=== PATIENT | male | born 1950 | race Caucasian/White ===

== ENCOUNTER 2016-05-31 09:35 | Outpatient (CLI) | payer MEDICARE | END 2016-05-31 09:36 | disposition home or self-care (01) | DX: Z12.11 Encounter for screening for malignant neoplasm of colon (principal) ==

== ENCOUNTER 2016-06-04 11:06 | Outpatient (CLI) | payer MEDICARE | END 2016-06-04 11:07 | disposition home or self-care (01) | DX: I10 Essential (primary) hypertension (principal); Z13.220 Encounter for screening for lipoid disorders ==

== ENCOUNTER 2016-08-02 09:12 | Day surgery (SDC) | payer MEDICARE ==
[~2016-08-02 09:12] MED LIST: PHENYLEPHRINE 2.5% OPHTH 2 ML DROPS ONE
[2016-08-02] MEDS ORDERED: CYCLOPENTOLATE 1% OPHTH DROPS 2 ML OPTH ONE (09:40)
[2016-08-02] MEDS ORDERED: PROPARACAINE 0.5% OPHTH DROPS 15 ML OPTH ONE (09:40)
[2016-08-02] MEDS ORDERED: KETOROLAC 0.45% OPHTH DROPS OPTH ONE (09:40)
[2016-08-02] MEDS ORDERED: PHENYLEPHRINE 2.5% OPHTH 2 ML DROPS OPTH ONE (09:40)
[2016-08-02] MEDS ORDERED: LACTATED RINGERS 500 ML IV ONE (09:44)
[2016-08-02] MEDS ORDERED: MIDAZOLAM 2 MG/2 ML VIAL IVP ONE (09:55)
[2016-08-02] MEDS ORDERED: BRIMONIDINE 0.2% OPHTH DROPS 5 ML OPTH ONE (10:04)
[2016-08-02] MEDS ORDERED: TRIAMCIN/MOXIFLOX/VANCO 1 ML VIAL IO ONE ×2 (10:04)
[2016-08-02] MEDS ORDERED: BSS/LIDOCAINE/EPINEPHRINE 1 ML SYRINGE IO ONE ×2 (10:04)
[2016-08-02] MEDS ORDERED: CHONDR SULF/HYALURONATE SYRINGE IO ONE ×2 (10:04)
[2016-08-02] MEDS ORDERED: EPINEPHrine 1 MG/ML AMP IVP ONE (10:04)
== END 2016-08-02 09:13 | disposition home or self-care (01) ==
PROC: 08RJ3JZ Replacement of Right Lens with Synthetic Substitute, Percutaneous Approach (ICD-10-PCS; principal; 2016-08-02 10:30)
DX: H25.811 Combined forms of age-related cataract, right eye (principal); I10 Essential (primary) hypertension; Z87.891 Personal history of nicotine dependence; M19.90 Unspecified osteoarthritis, unspecified site
CPT/HCPCS: 66984; A9270; V2632; V2788

== ENCOUNTER 2017-04-29 14:05 | Outpatient (CLI) | payer MEDICARE ==
[2017-04-29 19:05] LABS: ALBUMIN/GLOBULIN RATIO 1.1 (1.0-2.2); BILIRUBIN,TOTAL 0.7 mg/dL (0.2-1.0); BUN - BLOOD UREA NITROGEN 18 mg/dL (6-20); CALCIUM 9.1 mg/dL (8.5-10.3); CARBON DIOXIDE - CO2 28 mmol/L (21-32); CHLORIDE 102 mmol/L (101-111); CHOL/HDL RATIO 4.1 (<5.0); CHOLESTEROL 185 mg/dL; CREATININE 0.9 mg/dL (0.6-1.2); GFR - MDRD 84 (>89); GLUCOSE 91 mg/dL (70-100); HDL CHOLESTEROL 45 mg/dL; LDL/HDL RATIO 2.7 (<3.6); POTASSIUM 4.2 mmol/L (3.5-5.0); SODIUM 136 mmol/L (135-145); TOTAL PROTEIN 8.2 g/dL (6.7-8.2); TRIGLYCERIDES 87 mg/dL; VLDL CHOLESTEROL 17 mg/dL
== END 2017-04-29 14:06 | disposition home or self-care (01) ==
LOC: LAB.F 14:05
PROVIDERS: ATTEND Nurse Practitioner Family
DX: B35.1 Tinea unguium (principal)
CPT/HCPCS: 36415; 80053; 80061; G0103; 84153

== ENCOUNTER 2017-05-27 06:10 | Day surgery (SDC) | payer MEDICARE ==
[~2017-05-27 06:10] MED LIST changes: +MIDAZOLAM 2 MG/2 ML VIAL IVP ONE; -PHENYLEPHRINE 2.5% OPHTH 2 ML DROPS ONE; +fentaNYL 100 MCG/2 ML VIAL IVP ONE
[2017-05-27] MEDS ORDERED: LACTATED RINGERS 1,000 ML IV ONE (06:54)
[2017-05-27 08:38] VITALS: BP 118/64
== END 2017-05-27 06:11 | disposition home or self-care (01) ==
LOC: SDS 06:10
PROVIDERS: ATTEND Surgery
PROC: 0DJD8ZZ Inspection of Lower Intestinal Tract, Via Natural or Artificial Opening Endoscopic (ICD-10-PCS; principal; 2017-05-27 07:30)
DX: Z12.11 Encounter for screening for malignant neoplasm of colon (principal); K57.30 Diverticulosis of large intestine without perforation or abscess without bleeding; K64.8 Other hemorrhoids; I10 Essential (primary) hypertension; Z87.891 Personal history of nicotine dependence
CPT/HCPCS: G0121; J7120

== ENCOUNTER 2017-07-12 10:41 | Outpatient (CLI) | payer MEDICARE ==
[2017-07-12 18:20] LABS: ALBUMIN/GLOBULIN RATIO 1.1 (1.0-2.2); BILIRUBIN,TOTAL 0.6 mg/dL (0.2-1.0); CALCIUM 8.9 mg/dL (8.5-10.3); CREATININE 0.9 mg/dL (0.6-1.2); TOTAL PROTEIN 7.7 g/dL (6.7-8.2)
== END 2017-07-12 10:42 | disposition home or self-care (01) ==
LOC: LAB.F 10:41
PROVIDERS: ATTEND Nurse Practitioner Family
DX: B35.1 Tinea unguium (principal)
CPT/HCPCS: 36415; 80053

== ENCOUNTER 2019-07-03 07:01 | Outpatient (CLI) | payer MEDICARE ==
[2019-07-03 09:53] LABS: BASOPHILS # (AUTO) 0.1 10^3/uL (0.0-0.1); BASOPHILS % (AUTO) 1.5 %; EOSINOPHILS # (AUTO) 0.5 10^3/uL (0.0-0.7); EOSINOPHILS % (AUTO) 7.6 %; HGB - HEMOGLOBIN 13.4 g/dL (14.0-18.0); LYMPHOCYTES # (AUTO) 2.1 10^3/uL (1.5-3.5); LYMPHOCYTES % (AUTO) 34.6 %; MEAN CORPUSCULAR HEMOGLOBIN 30.8 pg (27.0-31.0); MEAN CORPUSCULAR HGB CONC 32.3 g/dL (32.0-36.0); MEAN CORPUSCULAR VOLUME 95.4 fL (80.0-94.0); MEAN PLATELET VOLUME 11.6 fL (7.4-11.4); MONOCYTES # (AUTO) 0.6 10^3/uL (0.0-1.0); MONOCYTES % (AUTO) 9.9 %; NEUTROPHILS # (AUTO) 2.8 10^3/uL (1.5-6.6); NEUTROPHILS % (AUTO) 46.1 %; PLT - PLATELET COUNT 262 10^3/uL (130-450); RED BLOOD COUNT 4.35 10^6/uL (4.70-6.10); WHITE BLOOD COUNT 6.1 x10^3/uL (4.8-10.8)
[2019-07-03 10:09] LABS: ALBUMIN 3.9 g/dL (3.2-5.5); ALBUMIN/GLOBULIN RATIO 1.2 (1.0-2.2); ALKALINE PHOSPHATASE 54 IU/L (42-121); ALT ALANINE AMINOTRANSFERASE 37 IU/L (10-60); AST ASPARTATE AMINOTRANSFERASE 33 IU/L (10-42); BILIRUBIN,TOTAL 0.8 mg/dL (0.2-1.0); BUN - BLOOD UREA NITROGEN 18 mg/dL (6-20); CALCIUM 8.9 mg/dL (8.5-10.3); CARBON DIOXIDE - CO2 29 mmol/L (21-32); CHLORIDE 102 mmol/L (101-111); CHOL/HDL RATIO 4.3 (<5.0); CHOLESTEROL 156 mg/dL; CREATININE 0.8 mg/dL (0.6-1.2); GFR - MDRD 95 (>89); GLUCOSE 105 mg/dL (70-100); HDL CHOLESTEROL 36 mg/dL; LDL CHOLESTEROL,CALCULATED 105 mg/dL; LDL/HDL RATIO 2.9 (<3.6); SODIUM 137 mmol/L (135-145); TOTAL PROTEIN 7.2 g/dL (6.7-8.2); VLDL CHOLESTEROL 15 mg/dL
== END 2019-07-03 07:02 | disposition home or self-care (01) ==
LOC: LAB.S 07:01
PROVIDERS: ATTEND Registered Nurse
DX: Z12.5 Encounter for screening for malignant neoplasm of prostate (principal); E78.5 Hyperlipidemia, unspecified; Z13.6 Encounter for screening for cardiovascular disorders; N40.0 Benign prostatic hyperplasia without lower urinary tract symptoms; I10 Essential (primary) hypertension
CPT/HCPCS: 36415; 80053; 80061; 84443; 85025; G0103; 83721; 84153

== ENCOUNTER 2019-12-09 14:58 | Outpatient (CLI) | payer MEDICARE | END 2019-12-09 14:59 | disposition home or self-care (01) | LOC: LAB.S 14:58 | PROVIDERS: ATTEND Registered Nurse | DX: D64.9 Anemia, unspecified (principal) | CPT/HCPCS: 36415; 82728 ==

== ENCOUNTER 2020-06-01 13:39 | Outpatient (CLI) | payer MEDICARE ==
--- NOTE | 2020-06-01 14:29 | XRAY Report ---
PROCEDURE: Chest 2 View X-Ray INDICATIONS: CHEST EXAM TECHNIQUE: 2 view(s) of the chest. COMPARISON: None. FINDINGS: Surgical changes and devices: Left-sided pacer. Lungs and pleura: No pleural effusions or pneumothorax. Lungs are clear. Mediastinum: Mediastinal contours are normal. Heart size is normal. Bones and chest wall: No suspicious bony abnormalities. Soft tissues appear unremarkable. IMPRESSION: No acute process. Reviewed by: Kavin Swain MD on 06/01/2020 2:28 PM PST Approved by: Kavin Swain MD on 06/01/2020 2:28 PM PST Station ID: [id number]
== END 2020-06-01 13:40 | disposition home or self-care (01) ==
LOC: DI.S 13:39
PROVIDERS: ATTEND Registered Nurse
DX: Z95.0 Presence of cardiac pacemaker (principal); I21.4 Non-ST elevation (NSTEMI) myocardial infarction; D86.0 Sarcoidosis of lung

== ENCOUNTER 2021-03-16 09:53 | Emergency (ER) | payer MEDICARE ==
[2021-03-16] MEDS ORDERED: PROPARACAINE 0.5% OPHTH DROPS 15 ML EACHEYE STA (11:05)
[2021-03-16 11:16] LABS: BASOPHILS # (AUTO) 0.1 10^3/uL (0.0-0.1); BASOPHILS % (AUTO) 1.1 %; EOSINOPHILS # (AUTO) 0.9 10^3/uL (0.0-0.7); EOSINOPHILS % (AUTO) 12.9 %; HCT - HEMATOCRIT 45.8 % (42.0-52.0); HGB - HEMOGLOBIN 14.9 g/dL (14.0-18.0); LYMPHOCYTES # (AUTO) 1.9 10^3/uL (1.5-3.5); LYMPHOCYTES % (AUTO) 28.5 %; MEAN CORPUSCULAR HGB CONC 32.5 g/dL (32.0-36.0); MEAN CORPUSCULAR VOLUME 95.4 fL (80.0-94.0); MEAN PLATELET VOLUME 10.7 fL (7.4-11.4); MONOCYTES # (AUTO) 0.8 10^3/uL (0.0-1.0); MONOCYTES % (AUTO) 11.7 %; NEUTROPHILS % (AUTO) 45.6 %; PLT - PLATELET COUNT 211 10^3/uL (130-450); RED CELL DISTRIBUTION WIDTH 12.8 % (12.0-15.0); WHITE BLOOD COUNT 6.6 x10^3/uL (4.8-10.8)
[2021-03-16 11:29] LABS: ALBUMIN 4.3 g/dL (3.2-5.5); ALBUMIN/GLOBULIN RATIO 1.2 (1.0-2.2); BILIRUBIN,TOTAL 1.1 mg/dL (0.2-1.0); CALCIUM 9.5 mg/dL (8.5-10.3); CREATININE 0.8 mg/dL (0.6-1.2); POTASSIUM 4.2 mmol/L (3.5-5.0)
[2021-03-16] MEDS ORDERED: IOVERSOL 320 100 ML VIAL IVP ONE ×2 (11:40→15:05)
--- NOTE | 2021-03-16 12:33 | CT Report ---
PROCEDURE: ANGIO HEAD W/WO INDICATIONS: Acute visual loss, rt eye, cannot receive MRI CONTRAST: IV CONTRAST: Optiray 320 ml: 80 PO CONTRAST: *NO PO CONTRAST TECHNIQUE: Precontrast 4.5 mm thick angled axial sections acquired from the foramen magnum to the vertex. Afte r the administration of intravenous contrast, 1 mm thick sections acquired through the Amanda of Will is. Postcontrast 4.5 mm thick sections then re-acquired from the foramen magnum to the vertex. 3-di mensional tunqjwf-cjhhwlqzu-jjyurdmtls (MIP) and/or volume rendering reformats were acquired of the c entral intracranial vasculature. For radiation dose reduction, the following was used: automated ex posure control, adjustment of mA and/or kV according to patient size. COMPARISON: None FINDINGS: Image quality: Excellent. Anterior circulation: Intracranial internal carotid arteries are normal in size and flow. The flow within the paired anterior cerebral arteries is normal and symmetric. The flow within the middle cer ebral arteries is normal and symmetric. The anterior communicating artery is seen. No aneurysms are seen. Posterior circulation: Visualized portions of the vertebral arteries demonstrate normal caliber, wit h the right vertebral artery dominant to the left. The left vertebral artery largely terminates in th e left posterior inferior cerebellar artery. There is a normal appearing basilar artery. Flow within the posterior cerebral arteries is normal and symmetric. No aneurysms are seen. CSF spaces: Ventricles are normal in size and shape. Basal cisterns are patent. No extra-axial flu id collections. Brain: No midline shift. No intracranial bleeds or masses. Gan-white matter interface appears int act. Skull and face: Calvarium and facial bones appear intact, without suspicious lesions. Sinuses: Visualized sinuses and mastoids are clear. IMPRESSION: No significant intracranial abnormality is seen. No intracranial hemorrhage is seen. No significant intracranial arterial abnormalities are seen. Reviewed by: Jason Cortes MD on 03/16/2021 11:32 AM JOE Approved by: Jason Cortes MD on 03/16/2021 11:32 AM JOE Station ID: [id number]
--- NOTE | 2021-03-16 15:49 | ED Physician Documentation ---
PD HPI OPHTHO - Stated complaint Stated Complaint: R EYE VISION LOSS/SENT BY - Chief complaint Chief Complaint: Heent - Additional information Additional information: Patient is a 70-year-old male who presents with 3-day history of decreased visual acuity in his right eye that he has a past medical history significant for myocardial infarction, for which he had a pacer placed in 2019 as well as undergoing right eye laser corrective surgery in 2017 that he reports required correction in 2018. States ordinarily has decreased visual acuity in his right eye however it is been markedly worse since waking up 3 days ago. He also reports that he received a report 2-1/2 days ago from his pacer company that he had a brief episode of atrial fibrillation. Denies any other focal or lateralizing symptoms. Said at this time he can only see light and dark and moving shapes out of his right eye. Denies any changes with the visual acuity in his left eye. Review of Systems Ten Systems: 10 systems reviewed and negative Constitutional: denies: Fever Eyes: reports: Loss of vision, Decreased vision. denies: Photophobia, Discharge, Irritation, Reviewed and negative Ears: denies: Loss of hearing, Ear pain, Tinnitus/ringing, Foreign body Nose: denies: Rhinorrhea / runny nose Throat: denies: Dental pain / toothache Cardiac: denies: Chest pain / pressure GI: denies: Abdominal Pain Neurologic: denies: Generalized weakness, Focal weakness, Numbness, Difficulty speaking, Near syncope, Syncope, Seizure, Confused, Altered mental status, Unresponsive, Headache, Head injury, LOC PD PAST MEDICAL HISTORY - Past Medical History Past Medical History: Yes Cardiovascular: Hypertension Respiratory: None GI: Hepatitis : Benign prostate hypertrophy HEENT: None Psych: None Musculoskeletal: None Derm: None - Past Surgical History Past Surgical History: Yes Cardiovascular: Pacemaker HEENT: Cataracts - Present Medications Home Medications: Ambulatory Orders Medication Instructions Recorded Confirmed Amlodipine Besylate 7.5 mg PO DAILY 08/01/16 05/27/17 Terbinafine [LamISIL] 250 mg PO DAILY 05/27/17 05/27/17 - Allergies Allergies/Adverse Reactions: Allergies Allergy/AdvReac Type Severity Reaction Status Date / Time No Known Drug Allergies Allergy Verified 03/16/21 10:13 - Social History Does the pt smoke?: No Smoking Status: Never smoker Does the pt drink ETOH?: Yes Does the pt have substance abuse?: No PD ED PE NORMAL - Vitals Vital signs reviewed: Yes - General General: Alert and oriented X 3 - Neck Neck: Supple, no meningeal sign - Cardiac Cardiac: RRR - Respiratory Respiratory: No respiratory distress - Abdomen Abdomen: Normal bowel sounds - Neuro Neuro: Alert and oriented X 3, sawdust drier 2-12 intact, No motor deficit, No sensory deficit, Normal speech PD ED PE EXPANDED - HEENT HEENT: Other - Eyes Eyes: Visual acuity - see nn, PERRL (Right eye is sluggish but responsive), Normal accommodation, EOMI, Other (Nursing exam negative. Extraocular motion intact. Ultrasonography did not demonstrate any dislocation, vitreous hemorrhage, vitreous flare, retinal detachment. Optic nerve 4 millimeters) Results - Vitals Vitals: Vital Signs - 24 hr 03/16/21 03/16/21 03/16/21 10:09 12:24 14:24 Temperature 36.5 C Heart Rate 64 64 61 Respiratory 14 15 16 Rate Blood Pressure 163/95 H 160/93 H 147/98 H O2 Saturation 98 100 99 Oxygen O2 Source Room air - EKG (time done) 1107 Rate: Rate (enter#) (62) Rhythm: Paced Clifford: LAD Intervals: LBBB Ischemia: Other (No concordant ST segment elevations, concordant ST segment depressions or excessive discordance in any lead.) Compare to prior EKG: Old EKG unavailable - Labs Labs: Laboratory Tests 03/16/21 03/16/21 11:12 11:12 WBC 6.6 RBC 4.80 Hgb 14.9 Hct 45.8 MCV 95.4 H MCH 31.0 MCHC 32.5 RDW 12.8 Plt Count 211 MPV 10.7 Neut # (Auto) 3.0 Lymph # (Auto) 1.9 Prowers # (Auto) 0.8 Eos # (Auto) 0.9 H Baso # (Auto) 0.1 Absolute Nucleated RBC 0.00 Nucleated RBC % 0.0 Sodium 136 Potassium 4.2 Chloride 102 Carbon Dioxide 26 Anion Gap 8.0 BUN 20 Creatinine 0.8 Estimated GFR (MDRD) 95 Glucose 119 H Calcium 9.5 Total Bilirubin 1.1 H AST 46 H ALT 56 Alkaline Phosphatase 47 Total Protein 8.0 Albumin 4.3 Globulin 3.7 Albumin/Globulin Ratio 1.2 PD MEDICAL DECISION MAKING - ED course Complexity details: reviewed results, re-evaluated patient, d/w patient ED course: Patient is 70-year-old male presenting with decreased acuity in his right eye that occurred 72 hours ago. Afebrile, hemodynamically stable on arrival to the emergency department. Nonfocal nonlateralizing neurologic exam. Visual acuity to the right eye was significantly diminished. His pupils were sluggish but reactive. Extraocular motion was intact. [id number] ultrasonography of the eye did not demonstrate any lens dislocation, vitreous hemorrhage, vitreous flare, retinal detachment. The optic nerve identified through [id number] ultrasonography was also appropriate at 4 mm. I measured the patient's intraocular pressures which were average of 17.5 of 3 measurements. I did obtain a CTA of his head and neck as he is incompatible with our MRI given his history of pacer placement. This was negative for any acute abnormality. His EKG as outlined above demonstrated an atrial sensed and paced rhythm without any indications of ongoing atrial fibrillation. Had a long and detailed discussion with the patient the multiple possible etiologies for his acute right-sided vision loss. He reports that at this time he would like to be discharged to follow-up with [facility] for both ophthalmology as to discuss the reported recent episode of atrial fibrillation that was recorded by his pacer. I encouraged him to return to the emergency department for any new or worsening symptoms. Departure - Departure Disposition: 01 Home, Self Care Clinical Impression: Vision loss Condition: Fair Comments: Thank you for allowing us to care for you today at [facility]. The emergency department today you were evaluated for any possible life threatening injury or illness. The EKG performed showed an appropriately paced rhythm without any indications of atrial fibrillation or cardiac ischemia or injury. The CTA of your head and neck did not show any blood clot or indication of acute stroke. Unfortunately we are unable to perform MRIs at our facility with individuals who have pacemakers present. The examination performed of your eye including the ultrasound performed here in the emergency department as well as the measurement of your intraocular pressures was generally reassuring. The neck step is to follow-up closely with an county auditor. Please contact the [facility] as soon as possible in order to make this follow-up appointment. If it anytime you develop any new or worsening symptoms please do not hesitate to return to the emergency department.
[2021-03-16 16:01] VITALS: BP 151/101
== END 2021-03-16 16:07 | disposition home or self-care (01) ==
LOC: ED 09:53
DX: H54.61 Unqualified visual loss, right eye, normal vision left eye (principal); I10 Essential (primary) hypertension; I25.2 Old myocardial infarction; Z95.0 Presence of cardiac pacemaker
CPT/HCPCS: 36415; 70496; 80053; 85025; 93005; 99284; J3490; Q9967

== ENCOUNTER 2022-07-27 10:02 | Outpatient (CLI) | payer MEDICARE ==
[2022-07-27 15:09] LABS: CALCIUM 9.5 mg/dL (8.5-10.3); POTASSIUM 4.7 mmol/L (3.5-5.0)
== END 2022-07-27 10:03 | disposition home or self-care (01) ==
LOC: LAB.S 10:02
PROVIDERS: ATTEND Nurse Practitioner
DX: I50.20 Unspecified systolic (congestive) heart failure (principal)
CPT/HCPCS: 36415; 80048

== ENCOUNTER 2023-05-31 13:23 | Outpatient (CLI) | payer MEDICARE ==
[2023-05-31 20:41] LABS: INR 1.4 (0.8-1.2); PT - PROTHROMBIN TIME 14.8 secs (9.9-12.6)
[2023-05-31 21:33] LABS: CALCIUM 9.6 mg/dL (8.5-10.3); CREATININE 1.1 mg/dL (0.6-1.3); POTASSIUM 4.6 mmol/L (3.5-4.5)
== END 2023-05-31 13:24 | disposition home or self-care (01) ==
LOC: LAB.S 13:23
PROVIDERS: ATTEND Internal Medicine
DX: I50.20 Unspecified systolic (congestive) heart failure (principal); I44.2 Atrioventricular block, complete; I25.5 Ischemic cardiomyopathy
CPT/HCPCS: 36415; 80048; 85610

== ENCOUNTER 2023-08-12 07:00 | Outpatient (CLI) | payer MEDICARE ==
[2023-08-12 14:30] LABS: BILIRUBIN,URINE NEGATIVE (NEGATIVE); GLUCOSE, URINE (UA) NEGATIVE (NEGATIVE); KETONES,URINE (UA) NEGATIVE (NEGATIVE); LEUKOCYTE ESTERASE, URINE LARGE (NEGATIVE); NITRITE,URINE NEGATIVE (NEGATIVE); OCCULT BLOOD,URINE SMALL (NEGATIVE); PROTEIN,URINE 30 mg/dL (NEGATIVE); UROBILINOGEN,URINE 0.2 (NORMAL) E.U./dL (NORMAL)
[2023-08-12 14:37] LABS: CLARITY,URINE CLOUDY (CLEAR)
[2023-08-12 14:54] LABS: SQUAMOUS EPITHELIAL CELL,UR RARE Squamous (<= Few); WBC CLUMPS,URINE PRESENT; WBC,URINE >25 /HPF (0-3)
[2023-08-12 14:55] LABS: BACTERIA,URINE Moderate /HPF (None Seen)
== END 2023-08-12 23:59 | disposition home or self-care (01) ==
LOC: LAB.S 07:00
PROVIDERS: ATTEND Registered Nurse
DX: R31.9 Hematuria, unspecified (principal); R80.9 Proteinuria, unspecified
CPT/HCPCS: 81001; 87077; 87086; 87181

== ENCOUNTER 2023-08-23 09:55 | Outpatient (CLI) | payer MEDICARE | END 2023-08-23 09:56 | disposition home or self-care (01) | LOC: LAB.S 09:55 | PROVIDERS: ATTEND Registered Nurse | DX: Z12.5 Encounter for screening for malignant neoplasm of prostate (principal) | CPT/HCPCS: 36415; G0103; 84153 ==

== ENCOUNTER 2023-09-10 08:57 | Outpatient (CLI) | payer MEDICARE | END 2023-09-10 08:58 | disposition home or self-care (01) | LOC: LAB.S 08:57 | PROVIDERS: ATTEND Registered Nurse | DX: Z12.5 Encounter for screening for malignant neoplasm of prostate (principal) | CPT/HCPCS: 36415; G0103; 84153 ==